=== PATIENT | female | born 1955 | race Caucasian/White ===

== ENCOUNTER → 2016-11-06 | Outpatient (CLI) | payer OTHER ==
--- NOTE | 2016-11-07 14:16 | MAMMOGRAPHY REPORT ---
BILATERAL DIGITAL SCREENING MAMMOGRAM TOMOSYNTHESIS WITH CAD: 11/06/2016 CLINICAL HISTORY: Routine screening. Patient has no complaints. TECHNIQUE: Breast tomosynthesis in addition to standard 2D mammography was performed. Current study was also evaluated with a Computer Aided Detection (CAD) system. COMPARISON: Comparison is made to exams dated: 05/03/2016 mammogram, 10/24/2015 mammogram - [facility], 06/07/2014 mammogram, 10/24/2015 ultrasound - [facility], 05/06/20 13 mammogram, and 10/26/2011 mammogram. BREAST COMPOSITION: The tissue of both breasts is heterogeneously dense, which may obscure small ma sses. FINDINGS: No suspicious masses, calcifications, or areas of architectural distortion are noted in ei ther breast mammographically. There has been no significant interval change compared to prior exams . Scattered bilateral benign-appearing calcifications are not significantly changed. Asymmetry in the right superior posterior breast on the MLO view is similar to prior exams including the 2011 exa m, and has the appearance of normal fibroglandular tissue on the tomosynthesis images. Although the mammogram shows no mammographic evidence of malignancy, a biopsy was recommended of a f inding seen in the left breast at 2:00 on ultrasound only in April 2016, and was not visualized mammo graphically. A short interval follow-up was also recommended of a mass in the right breast at 10:00 on the April 2016 exam. IMPRESSION: ACR BI-RADS CATEGORY 0: INCOMPLETE EVALUATION: NEED ADDITIONAL IMAGING EVALUATION No mammographic evidence of malignancy in either breast. However, on the April 2016 exam a biopsy wa s recommended of a finding in the left breast at 2:00 seen on ultrasound only, and a short interval follow-up was recommended of a right 10:00 breast mass seen on ultrasound only. Therefore, follow-u p ultrasound is recommended of these 2 areas at this time. Also recommend routine bilateral screeni ng mammograms in one year. The patient will be called to schedule an appointment. Approximately 10% of breast cancers are not detected with mammography. A negative mammographic repor t should not delay biopsy if a clinically suggestive mass is present. Olamide Vides M.D. /:11/06/2016 16:51:35 Remote Operations Producer: Millie LOGAN)(Tova)([place]), [facility] letter sent: Addl Imaging 0 BI-RADS Code: ACR BI-RADS Category 0: Incomplete Evaluation: Need Additional Imaging Evaluation
== END | disposition home or self-care (01) ==
LOC: C.MAMM 10:57
PROVIDERS: ATTEND Obstetrics & Gynecology
DX: Z12.31 Encounter for screening mammogram for malignant neoplasm of breast (principal); R92.2 Inconclusive mammogram

== ENCOUNTER → 2017-11-07 | Outpatient (CLI) | payer OTHER ==
--- NOTE | 2017-11-10 07:44 | MAMMOGRAPHY REPORT ---
BILATERAL DIGITAL SCREENING MAMMOGRAM TOMOSYNTHESIS WITH CAD: 11/07/2017 CLINICAL HISTORY: Routine screening. Patient has no complaints. TECHNIQUE: Breast tomosynthesis in addition to standard 2D mammography was performed. Current study was also evaluated with a Computer Aided Detection (CAD) system. COMPARISON: Comparison is made to exams dated: 11/06/2016 mammogram, 05/03/2016 mammogram, 05/03/2016 u ltrasound - [facility] [address], 06/07/2014 mammogram, 10/24/2015 ultrasound, and 10/24/2015 mamm ogram - [facility] [address]. BREAST COMPOSITION: The tissue of both breasts is heterogeneously dense, which may obscure small mas ses. FINDINGS: No suspicious masses, calcifications, or areas of architectural distortion are noted in ei ther breast. There has been no significant interval change compared to prior exams. Bilateral benign -appearing calcifications are not significantly changed. Linear scar markers denote scars on the lef t lateral and right anterior breast. IMPRESSION: ACR BI-RADS CATEGORY 2: BENIGN There is no mammographic evidence of malignancy. A 1 year screening mammogram is recommended. The pa tient will receive written notification of the results. Approximately 10% of breast cancers are not detected with mammography. A negative mammographic report should not delay biopsy if a clinically suggestive mass is present. Olamide Vides M.D. /:11/07/2017 15:40:04 Assistant Banquet Manager: Miri LOGAN)(Tova), [facility] [address] letter sent: Normal 1/2 BI-RADS Code: ACR BI-RADS Category 2: Benign
== END | disposition home or self-care (01) ==
LOC: C.MAMM 10:11
PROVIDERS: ATTEND Obstetrics & Gynecology
DX: Z12.31 Encounter for screening mammogram for malignant neoplasm of breast (principal)

== ENCOUNTER → 2017-12-03 | Outpatient (CLI) | payer OTHER | END | disposition home or self-care (01) | LOC: C.PAPS 11:13 | PROVIDERS: ATTEND Obstetrics & Gynecology | DX: Z12.4 Encounter for screening for malignant neoplasm of cervix (principal) ==

== ENCOUNTER 2023-01-04 11:21 | Observation (INO) ==
--- NOTE | 2023-01-04 11:45 | Emergency Department Note ---
Impression & Plan COVID-19 ADMIT ED Provider Note HPI: The patient is a 67-year-old female with history of Parkinson disease, who presents to the emergency department with a chief complaint of generalized weakness and pain in the bilateral lower extremities. Patient states overnight she developed some increasing pain in her upper thigh area and hips bilaterally. Patient states this made it difficult to sleep. Patient also states she had a low-grade headache that began earlier this morning. Denies any recent fevers, denies any chest pain or shortness of breath. Patient states she does have some slight nausea, denies any abdominal pain. On arrival here to the ED the patient is hemodynamically stable, no motor or sensory deficits distally in the bilateral lower extremities are noted. Patient is saturating well on room air on arrival. Patient is afebrile on arrival. ROS: - Per HPI *Outpatient medications and allergy history reviewed. *Pertinent external medical records reviewed. PE: General: Alert HEENT: Normocephalic, trachea midline Eyes: Extraocular eye movement is intact, no scleral erythema Pulmonary: Clear to auscultation bilaterally, no wheezing Cardio: Regular rate and rhythm GI: Abdomen is soft to palpation : No suprapubic tenderness MSK: No evidence of trauma or malformation of the extremities, no edema, no midline tenderness of lumbar spine with palpation Skin: No evidence of rash Neuro: Alert, no focal deficits, 5 out of 5 strength with dorsiflexion and plantarflexion of the bilateral lower extremities, resting tremor noted to the left upper Psychiatric: Cooperative cardiac monitor technician: (As interpreted by myself): - An order was placed for continuous cardiac monitoring - Patient was noted to be in sinus rhythm with a rate of 85 EKG: (As interpreted by myself): Rate: 84 Rhythm: Normal sinus rhythm Intervals: Within normal limits ST changes: No ST elevation Time: 1250 Interventions provided in ED: -IV fluid bolus, IV Reglan, IV Benadryl, IV magnesium Differential Diagnosis: Viral illness, influenza infection, COVID-19 infection, rhabdomyolysis, sciatica, migraine headache, tension headache, intracranial hemorrhage/subarachnoid hemorrhage, gastroenteritis, amongst other potential pathologies. Medical Decision Making: The patient is a 67-year-old female with history of Parkinson disease, presents emergency department with a chief complaint of generalized weakness, bilateral lower extremity pain in the upper legs, mild headache. Patient states that she also has some nausea and generally just does not feel well. On arrival here to the ED the patient is hemodynamically stable, she is somewhat frail-appearing, she is in no acute physical distress on arrival. IV was established, lab work obtained, patient was placed on campus monitor. Patient was given IV fluid bolus as well as IV Reglan and IV Benadryl for headache. CT imaging of the head was obtained that does not show any evidence of acute intracranial process. CT imaging of the lumbar spine was obtained as the patient mentioned a history of "low disc volume at L3 and L4". CT imaging shows some degenerative changes of the lumbar spine without any acute fracture or emergent pathology. Patient does not have any red flag findings for cauda equina syndrome. Lab work does not show any evidence of acute renal failure, CPK levels are within normal limits, no critical electrolyte abnormalities are noted. Hemoglobin is stable, no leukocytosis. While on the campus monitor, patient had an event at 12:27pm that lasted approximately 5 seconds of apparent polymorphic ventricular tachycardia. Patient states in general she has felt weak and nauseous although no specific symptoms at that moment or obvious. This does not appear to be consistent with artifact. I did discuss this finding with on-call cardiology, Dr. Frazier, given reassuring EKG without any critical electrolyte abnormalities and magnesium within normal limits, recommends continued monitoring while admitted to the hospitalist service on campus monitor. I discussed all of the above findings with the patient and her [id number] at the bedside, patient will require admission for ambulatory dysfunction, states she does live alone, does not feel well for discharge. Case was then discussed with the on-call hospitalist, Dr. Hunter, patient was placed for admission in stable condition. Consultants: -Dr. Frazier, cardiology -Dr. Hunter, hospitalist Disposition discussion held by myself with: Patient and [id number] at the bedside Diagnosis: 1. COVID-19 infection 2. Myalgias, acute 3. Generalized weakness, acute 4. Headache, acute 5. Ambulatory dysfunction, acute on chronic 6. Paroxysmal episode of ventricular tachycardia Disposition: Admission Milo Rubio DO Emergency Medicine Past Med/Surg History Medical History Postmenopausal status (age-related) (natural) Surgical History H/O breast biopsy H/O eye surgery H/O umbilical hernia repair History of gynecologic surgery vaginal sling operation for stress incontinence Family History Father Heart disease Hypertension Mother Heart disease Hypertension Osteoporosis Denies family history of Breast cancer Colorectal cancer Social History Smoking Status: Never smoker Preferred Language: Kosovan Feels Safe at Home: Yes Allergies Allergies Allergy/AdvReac Type Severity Reaction Status Date / Time No Known Drug Allergies Allergy Unknown Verified 01/16/21 06:59 Home Meds Home Medications Medication Instructions Recorded Confirmed multivitamin 1 tab PO DAILY 09/27/20 01/16/21 Results & Data (ED) Vital Signs Vital Signs - 24 hr 01/04/23 11:25 01/04/23 12:00 01/04/23 12:00 Temperature 36.8 C Temperature Source Temporal Artery Scan Pulse Rate 97 H Pulse Rate [Right Finger] 91 H Pulse Rhythm [Right Finger] Regular Pulse Strength [Right Finger] Normal Respiratory Rate 18 18 Respiratory Effort / Characteristics Non-Labored Respiratory Depth Normal Respiratory Pattern Regular Blood Pressure 138/80 Blood Pressure [Right Arm] 156/78 H Blood Pressure Mean 99 Blood Pressure Mean [Right Arm] 104 Blood Pressure Position [Right Arm] Lying Pulse Oximetry 97 97 Oxygen Delivery Method Room Air Room Air Room Air Sepsis Recent Fever Within 48 Hours No Sepsis New/Unexplained Change in Mental Status No Sepsis Action Taken by Nursing No Action Required 01/04/23 12:20 01/04/23 12:27 01/04/23 12:47 Temperature Temperature Source Pulse Rate 90 231 H 87 Pulse Rate [Right Finger] Pulse Rhythm [Right Finger] Pulse Strength [Right Finger] Respiratory Rate Respiratory Effort / Characteristics Respiratory Depth Respiratory Pattern Blood Pressure Blood Pressure [Right Arm] Blood Pressure Mean Blood Pressure Mean [Right Arm] Blood Pressure Position [Right Arm] Pulse Oximetry Oxygen Delivery Method Sepsis Recent Fever Within 48 Hours Sepsis New/Unexplained Change in Mental Status Sepsis Action Taken by Nursing Laboratory Data 01/04/23 11:54 01/04/23 11:54 Lab Results 01/04/23 01/04/23 01/04/23 Range/Units 11:54 11:54 11:54 WBC 7.65 (4.8-10.8) K/ul RBC 4.54 (4.20-5.40) M/uL Hgb 13.3 (12.0-16.0) g/dl Hct 39.8 (37.0-47.0) % MCV 87.7 (80.0-100.0) fL MCH 29.3 (25.0-34.0) pg MCHC 33.4 (32.0-36.0) g/dL RDW Std Deviation 42.1 (36.4-46.3) fL RDW Coeff of Hoang 13.1 (11.5-14.5) % Plt Count 200 (130-400) K/uL MPV 10.1 (9.4-12.4) fL Immature Gran % (Auto) 0.4 % Neut % (Auto) 87.0 % Lymph % (Auto) 2.5 % [place] % (Auto) 8.9 % Eos % (Auto) 0.8 % Baso % (Auto) 0.4 % Neut # (Auto) 6.66 H (1.40-6.50) K/uL Lymph # (Auto) 0.19 L (1.2-3.4) K/uL [place] # (Auto) 0.68 H (0.11-0.59) K/uL Eos # (Auto) 0.06 (0-0.50) K/uL Baso # (Auto) 0.03 (0-0.2) K/uL Immature Gran # (Auto) 0.03 (0.01-0.20) K/uL Sodium 138 (136-145) mmol/L Potassium 3.8 (3.5-5.1) mmol/L Chloride 103 (98-107) mmol/L Carbon Dioxide 28 (21-32) mmol/L Anion Gap 7 (3-11) BUN 16 (6-23) mg/dl Creatinine 0.83 (0.6-1.2) mg/dl Est Cr Clr Drug Dosing Not Reportable Est GFR ( Amer) 84.0 ml/min Est GFR (Non-Af Amer) 72.5 ml/min BUN/Creatinine Ratio 19.3 (10-20) Glucose 106 H (70-99(Fasting)) mg/dl Calcium 9.1 (8.5-10.1) mg/dl Magnesium 1.8 (1.7-2.4) mg/dl Total Bilirubin 0.6 (0.2-1.0) mg/dl AST 17 (13-39) U/L ALT 14 (7-52) U/L Alkaline Phosphatase 57 (34-104) U/L Total Creatine Kinase 40 (26-192) U/L Troponin I High Sens 3.6 (0-14) pg/ml Total Protein 6.7 (6.0-8.3) gm/dl Albumin 4.2 (3.4-5.0) gm/dl Globulin 2.5 (2.5-4.0) gm/dl Albumin/Globulin Ratio 1.7 (0.9-2) TSH (0.300-4.500) uIu/ml SARS-CoV-2 (PCR) (Negative) Influenza Type A (PCR) (Neg) Influenza Type B (PCR) (Neg) RSV (RT-PCR) (Neg) 01/04/23 01/04/23 Range/Units 11:54 12:19 WBC (4.8-10.8) K/ul RBC (4.20-5.40) M/uL Hgb (12.0-16.0) g/dl Hct (37.0-47.0) % MCV (80.0-100.0) fL MCH (25.0-34.0) pg MCHC (32.0-36.0) g/dL RDW Std Deviation (36.4-46.3) fL RDW Coeff of Hoang (11.5-14.5) % Plt Count (130-400) K/uL MPV (9.4-12.4) fL Immature Gran % (Auto) % Neut % (Auto) % Lymph % (Auto) % [place] % (Auto) % Eos % (Auto) % Baso % (Auto) % Neut # (Auto) (1.40-6.50) K/uL Lymph # (Auto) (1.2-3.4) K/uL [place] # (Auto) (0.11-0.59) K/uL Eos # (Auto) (0-0.50) K/uL Baso # (Auto) (0-0.2) K/uL Immature Gran # (Auto) (0.01-0.20) K/uL Sodium (136-145) mmol/L Potassium (3.5-5.1) mmol/L Chloride (98-107) mmol/L Carbon Dioxide (21-32) mmol/L Anion Gap (3-11) BUN (6-23) mg/dl Creatinine (0.6-1.2) mg/dl Est Cr Clr Drug Dosing Est GFR ( Amer) ml/min Est GFR (Non-Af Amer) ml/min BUN/Creatinine Ratio (10-20) Glucose (70-99(Fasting)) mg/dl Calcium (8.5-10.1) mg/dl Magnesium (1.7-2.4) mg/dl Total Bilirubin (0.2-1.0) mg/dl AST (13-39) U/L ALT (7-52) U/L Alkaline Phosphatase (34-104) U/L Total Creatine Kinase (26-192) U/L Troponin I High Sens (0-14) pg/ml Total Protein (6.0-8.3) gm/dl Albumin (3.4-5.0) gm/dl Globulin (2.5-4.0) gm/dl Albumin/Globulin Ratio (0.9-2) TSH 0.898 (0.300-4.500) uIu/ml SARS-CoV-2 (PCR) POSITIVE A* (Negative) Influenza Type A (PCR) Negative (Neg) Influenza Type B (PCR) Negative (Neg) RSV (RT-PCR) Negative (Neg) Administered Medications Discontinued Medications Diphenhydramine HCl (Diphenhydramine 50 Mg/Ml Vial) 25 mg IV NOW STA Stop: 01/04/23 13:26 Last Admin: 01/04/23 13:34 Dose: 25 mg Documented By: ROSA Sodium Chloride (Nss) 500 mls @ 999 mls/hr IV .Q31M ONE Stop: 01/04/23 12:16 Last Infusion: 01/04/23 12:41 Dose: 0 mls/hr Documented By: Admin: 01/04/23 12:00 Dose: 999 mls/hr Documented By: JULIANA Metoclopramide HCl (Metoclopramide Hcl Inj 5 Mg/Ml 2 Ml Vial) 10 mg IV NOW STA Stop: 01/04/23 13:26 Last Admin: 01/04/23 13:34 Dose: 10 mg Documented By: ROSA Imaging Data Radiologist's Impression: Lumbar Spine CT 01/04/23 11:42 CT OF THE LUMBAR SPINE CLINICAL HISTORY: Lower extremity weakness/pain. COMPARISON STUDY: No previous studies for comparison. TECHNIQUE: Helical axial images of the lumbar spine were obtained. Sagittal and coronal reconstructions were viewed. Automated exposure control was utilized for the study. A dose lowering technique was utilized adhering to the principles of ALARA. FINDINGS: For purposes of numbering on this exam, the L5-S1 disc space is assigned to axial image 303 of 346. There is slight anterolisthesis of L4 and L5 due to facet arthrosis. There is also slight anterolisthesis of L3 on L4. There is minimal leftward curvature of the mid lumbar spine. Vertebral body heights are maintained. There is no lumbar spine fracture. No osseous lesion is present. Severe multilevel facet arthrosis within the mid to lower lumbar spine is present. There is mild multilevel degenerative disc disease. The central canal and neural foramen are suboptimally assessed given CT technique. However, there is no evidence for severe central canal or neural foraminal stenosis. No signif icant central canal stenosis is identified by CT. There is mild to moderate multilevel neural foraminal stenosis. Paravertebral soft tissues are unremarkable. IMPRESSION: 1. No acute lumbar spine fracture or subluxation. 2. Mild multilevel degenerative disc disease and severe facet arthrosis within the lumbar spine. Central canal and neural foramen suboptimally assessed by CT. However, no evidence for central canal stenosis. Mild to moderate multilevel neural foraminal stenosis. ACT 112: Negative or not required by law. Electronically signed by: Kingsley Rhoades M.D. 01/04/2023 12:23 PM Chest X-Ray 01/04/23 12:40 XR chest 1V portable CLINICAL HISTORY: weak COMPARISON STUDY: No previous studies for comparison. FINDINGS: Lung volumes are normal. Lungs are clear. There is no pneumothorax or pleural effusion. Cardiac size is normal. Mediastinal contours are normal. There is no evidence for pulmonary edema. IMPRESSION: No acute cardiopulmonary findings. ACT 112: Negative or not required by law. Electronically signed by: Kingsley Rhoades M.D. 01/04/2023 1:[address] 01/04/23 13:25 CT OF THE HEAD WITHOUT CONTRAST CLINICAL HISTORY: Headache. COMPARISON STUDY: No previous studies for comparison. CT DOSE: 614.27 mGy.cm TECHNIQUE: Helical axial images of the head were obtained without IV contrast. Automated exposure control was utilized for the study. A dose lowering technique was utilized adhering to the principles of ALARA. FINDINGS: No acute intracranial hemorrhage, midline shift or mass effect is pre sent. The ventricular system is unremarkable. The basal cisterns are patent. No extra-axial collections are present. There are no findings to suggest acute dural sinus thrombosis or acute territorial infarct. No significant calvarial abnormalities are present. IMPRESSION: No acute intracranial findings. ACT 112: Negative or not required by law. Electronically signed by: Kingsley Rhoades M.D. 01/04/2023 1:59 PM Discharge Plan Visit Data Chief Complaint: Leg Weakness, Bilateral Stated Complaint: WEAKNESS IN LEGS ED Provider: Milo Rubio Discharge Problem: COVID-19 Forms Stand Alone Forms: [employer] Prescriptions Prescriptions: No Action multivitamin Tablet 1 tab PO DAILY Referrals Referrals: PCP,NO [Primary Care Provider] -
[2023-01-04] MEDS ORDERED: SODIUM CHLORIDE 0.9% 500 ML IV ONE (11:46)
[2023-01-04 12:06] LABS: Basophils # (auto) 0.03 K/uL (0-0.2); Basophils % (auto) 0.4 %; Eosinophils # (auto) 0.06 K/uL (0-0.50); Eosinophils % (auto) 0.8 %; Hematocrit (blood only) 39.8 % (37.0-47.0); Hemoglobin 13.3 g/dl (12.0-16.0); Immature Granulocytes # (auto) 0.03 K/uL (0.01-0.20); Immature Granulocytes % (auto) 0.4 %; Lymphocytes # (auto) 0.19 K/uL (1.2-3.4); Lymphocytes % (auto) 2.5 %; Mean Corpuscular Hemoglobin 29.3 pg (25.0-34.0); Mean Corpuscular Hgb Conc 33.4 g/dL (32.0-36.0); Mean Corpuscular Volume 87.7 fL (80.0-100.0); Mean Platelet Volume 10.1 fL (9.4-12.4); Monocytes # (auto) 0.68 K/uL (0.11-0.59); Monocytes % (auto) 8.9 %; Neutrophils # (auto) 6.66 K/uL (1.40-6.50); Platelet Count 200 K/uL (130-400); RDW Coefficient of Variation 13.1 % (11.5-14.5); RDW Standard Deviation 42.1 fL (36.4-46.3); Red Blood Count 4.54 M/uL (4.20-5.40); White Blood Count 7.65 K/ul (4.8-10.8)
[2023-01-04 12:21] LABS: Albumin Level 4.2 gm/dl (3.4-5.0); Anion Gap 7 (3-11); Bilirubin,Total 0.6 mg/dl (0.2-1.0); Calcium 9.1 mg/dl (8.5-10.1); Carbon Dioxide 28 mmol/L (21-32); Chloride 103 mmol/L (98-107); Potassium 3.8 mmol/L (3.5-5.1); Sodium 138 mmol/L (136-145)
--- NOTE | 2023-01-04 12:26 | CT Scan Report ---
CT OF THE LUMBAR SPINE CLINICAL HISTORY: Lower extremity weakness/pain. COMPARISON STUDY: No previous studies for comparison. TECHNIQUE: Helical axial images of the lumbar spine were obtained. Sagittal and coronal reconstruct ions were viewed. Automated exposure control was utilized for the study. A dose lowering technique was utilized adhering to the principles of ALARA. FINDINGS: For purposes of numbering on this exam, the L5-S1 disc space is assigned to axial image 303 of 346. There is slight anterolisthesis of L4 and L5 due to facet arthrosis. There is also slight an terolisthesis of L3 on L4. There is minimal leftward curvature of the mid lumbar spine. Vertebral bod y heights are maintained. There is no lumbar spine fracture. No osseous lesion is present. Severe mul tilevel facet arthrosis within the mid to lower lumbar spine is present. There is mild multilevel deg enerative disc disease. The central canal and neural foramen are suboptimally assessed given CT techn ique. However, there is no evidence for severe central canal or neural foraminal stenosis. No signifi cant central canal stenosis is identified by CT. There is mild to moderate multilevel neural foramina l stenosis. Paravertebral soft tissues are unremarkable. IMPRESSION: 1. No acute lumbar spine fracture or subluxation. 2. Mild multilevel degenerative disc disease and severe facet arthrosis within the lumbar spine. Cent ral canal and neural foramen suboptimally assessed by CT. However, no evidence for central canal sten osis. Mild to moderate multilevel neural foraminal stenosis. ACT 112: Negative or not required by law. Electronically signed by: Kingsley Rhoades M.D. 01/04/2023 12:23 PM
[2023-01-04 12:27] LABS: Alanine Aminotransferase 14 U/L (7-52); Albumin Globulin Ratio 1.7 (0.9-2); Alkaline Phosphatase 57 U/L (34-104); Aspartate Aminotransferase 17 U/L (13-39); BUN Creatinine Ratio 19.3 (10-20); Blood Urea Nitrogen 16 mg/dl (6-23); Creatine Kinase 40 U/L (26-192); Est GFR (Non-African American) 72.5 ml/min; Globulin 2.5 gm/dl (2.5-4.0); Glucose 106 mg/dl (70-99(Fasting)); Total Protein 6.7 gm/dl (6.0-8.3)
[2023-01-04 13:20] LABS: Influenza A virus by PCR Negative (Neg); Influenza B virus by PCR Negative (Neg); RSV by PCR Negative (Neg)
[2023-01-04] MEDS ORDERED: METOCLOPRAMIDE HCL INJ 5 MG/ML 2 ML VIAL IV STA (13:25)
[2023-01-04] MEDS ORDERED: diphenhydrAMINE 50 MG/ML VIAL IV STA (13:25)
--- NOTE | 2023-01-04 13:33 | XRay Report ---
XR chest 1V portable CLINICAL HISTORY: weak COMPARISON STUDY: No previous studies for comparison. FINDINGS: Lung volumes are normal. Lungs are clear. There is no pneumothorax or pleural effusion. Car diac size is normal. Mediastinal contours are normal. There is no evidence for pulmonary edema. IMPRESSION: No acute cardiopulmonary findings. ACT 112: Negative or not required by law. Electronically signed by: Kingsley Rhoades M.D. 01/04/2023 1:31 PM
[2023-01-04 13:34] LABS: Magnesium 1.8 mg/dl (1.7-2.4)
[2023-01-04 13:41] LABS: Troponin I High Sensitivity 3.6 pg/ml (0-14)
[2023-01-04 13:45] LABS: SARS CoV2 RNA(COVID-19) Ceph POSITIVE (Negative)
--- NOTE | 2023-01-04 14:00 | CT Scan Report ---
CT OF THE HEAD WITHOUT CONTRAST CLINICAL HISTORY: Headache. COMPARISON STUDY: No previous studies for comparison. CT DOSE: 614.27 mGy.cm TECHNIQUE: Helical axial images of the head were obtained without IV contrast. Automated exposure con trol was utilized for the study. A dose lowering technique was utilized adhering to the principles o f ALARA. FINDINGS: No acute intracranial hemorrhage, midline shift or mass effect is present. The ventricular system is unremarkable. The basal cisterns are patent. No extra-axial collections are present. There are no findings to suggest acute dural sinus thrombosis or acute territorial infarct. No significant calvarial abnormalities are present. IMPRESSION: No acute intracranial findings. ACT 112: Negative or not required by law. Electronically signed by: Kingsley Rhoades M.D. 01/04/2023 1:59 PM
[2023-01-04] MEDS: MAGNESIUM SULFATE / D5W 1 GM/100 ML BAG IV SCH ×2 (14:28→18:15)
--- NOTE | 2023-01-04 14:37 | History & Physical Report ---
Date of Service January 04, 2023 Assessment & Plan (1) COVID-19: Plan: Exertional fatigue 2/2 COVID-19. - No hypoxia, patient denies exertional dyspnea at bedside No leukocytosis No hypoxia, steroid/remdesivir not currently indicated Patient with myalgias, CK is normal CRP pending - No transaminitis -Creatinine baseline is less than 1, admitting creatinine 0.83. Creatinine/BUN ratio is not elevated. CXR: No acute findings High-sensitivity troponin normal, patient is clinically without chest pain Patient has been with headache and fatigue, CT head with no acute findings. Headache improved following symptomatic treatment of nausea CTC-spine with no acute lumbar fracture or subluxation. Multilevel degenerative disease, no central canal stenosis noted. Multilevel neural for aminal stenosis Nonsustained polymorphic V. tach Less than 2 seconds, 1 episode noted on monitor. Asymptomatic, patient did not lose consciousness or noticed the episode although per her family who was at bedside thought she was more irritable for secondary to Magnesium 1.8, repletion ordered. Received 2 bags in ER, additional 2 bags ordered for floor. EKG: Normal sinus rhythm, rate 84, QTc 449, no ST segment changes or T wave inversion Avoid QT prolonging medications including Zofran Follow on telemetry Cardiology consulted Echo pending Parkinsonism Patient reports longstanding focal resting tremor in left hand without sensory deficits. Has followed with neurology in the past, given that this does not interfere with her life and has been limited to the left hand she has not pursued medical treatments for this. She does not currently follow with neurology, if her symptoms worsen she will make a follow-up appointment for reevaluation and potential Sinemet treatment; however this has not been required today. No recent change. No acute intervention indicated at this time. DVT prophylaxis: COVID DVT prophylaxis with Lovenox Diet: Regular Disposition: PCU CODE STATUS: Full code (2) Polymorphic ventricular tachycardia: History of Present Illness Primary Care Provider: NO PCP Gabriella is a 67-year-old female patient with a past medical history of parkinsonism who presents with exertional fatigue and is COVID-positive on admission. While in monitoring she had a less than 2-second episode of polymorphic VT which was discussed with cardiology, recommended for echo and observation on telemetry with electrolyte optimization. Has been doing pt since june and is 'a little sore after' but last night was 'much more sore and tired.' Nausea has resolved since being in the ER, but notes she is hypersensitive to smells and cannot wear a mask. No fevers. No cough. No shortness or breath No chest pain. Easily exercise fatigue, but reports she is not actually short of breath with ambulation 'my breathing is fine, just more tired and achy.' Has a headache in the last day, reports she usually benefits from chiropractic and acupuncture but has not done this lately. She reports she has a decreased appetite for 2 days, but is currently hungry and would like to eat now that her nausea is well controlled. Has not had vomiting, diarrhea. Denies syncope/presyncope. Denies numbness/tingling. Endorses chronic mild swelling in her legs. No history of orthopnea or shortness of breath lying flat Chronic Medications: Multiple vitamin supplements. Denies any prescription medications Medical History: Diagnosed with Parkinsons, does not take sinemet or any medications. Sx do not interfere with her life so has deferred. Symptoms are limited to L hand tremor at baseline, not currently following with a neurologist. Plans to make apptment if sx interfere with daily activities. Primary Care Doc: Dr. Marroquin, has not seen since he retired. Would liek to establish with a provider who can do complimentary medicine such as acupuncture. Medical History: Reviewed Medications: Reviewed. NKDA Surgical History: Reviewed Family history: Reviewed Allergies: Reviewed Social History: No tobacco, no alcohol use. Code Status: Full code Allergies Allergy/AdvReac Type Severity Reaction Status Date / Time No Known Drug Allergies Allergy Unknown Verified 01/16/21 06:59 Home Medications Medication Instructions Recorded Confirmed Type multivitamin 1 tab PO DAILY 09/27/20 01/16/21 History Past Med/Surg History Medical History Postmenopausal status (age-related) (natural) Surgical History H/O breast biopsy H/O eye surgery H/O umbilical hernia repair History of gynecologic surgery vaginal sling operation for stress incontinence Family History Father Heart disease Hypertension Mother Heart disease Hypertension Osteoporosis Denies family history of Breast cancer Colorectal cancer Social History Smoking Status: Never smoker Preferred Language: British Feels Safe at Home: Yes Review of Systems Review of Systems: All systems reviewed & are unremarkable except as noted in HPI & below Physical Exam Physical Exam: General: A&Ox3. NAD. Cooperative. HEENT: Atraumatic, normocephalic. Vision/hearing intact. Pupils equal and reactive to light neck flexion/extension rotation intact. Chin to chest intact. Pulm: CTAB A&P. -wheezes, -rales, -rhonchi. Symmetrical chest rise. No increased work of breathing. No respiratory distress. Cardiac: RRR, -mrg. Radial pulses intact and symmetrical. Abdominal: Nontender, nondistended, soft. BS present. Extremities: Resting 3 to 5 Hz tremor of the left hand. No other tremor noted. Tremor does quiet on [id number] extension. Conventional Machinist strength, ankle dorsiflexion/plantarflexion is 5/5 with encouragement. Sensation intact to soft touch in hands and feet. Results & Data Results & Data Vital Signs (Past 12 Hours) Vital Signs Temp Pulse Pulse Resp BP BP Pulse Ox 01/04/23 12:47 87 01/04/23 12:27 231 H 01/04/23 12:20 90 01/04/23 12:00 01/04/23 12:00 91 H 18 156/78 H 97 01/04/23 11:25 36.8 C 97 H 18 138/80 97 O2 Del Method 01/04/23 12:47 01/04/23 12:27 01/04/23 12:20 01/04/23 12:00 Room Air 01/04/23 12:00 Room Air 01/04/23 11:25 Room Air PG Care Time/CCT Total # of Minutes Spent Total Time Spent with Patient: Total time spent is greater than 50% in coordination of care (as documented) at patient's floor/unit and/or counseling patient: Coding Level of Care Code 04140 INT INP/OBS CARE 2/55MIN Diagnoses COVID-19 U07.1 Polymorphic ventricular tachycardia I47.29
[2023-01-04 14:38] LABS: Appearance Urine Turbid (Clear); Bacteria Urine Automated Negative (Negative); Bilirubin Urine Negative (Negative); Blood Urine Negative (Negative); Color Urine Yellow; Epithelial Cell Urine Auto >30 /lpf (0-5); Glucose Urine UA Negative (Negative); Ketones Urine 1+ (Negative); Leukocyte Esterase Urine Negative (Negative); Nitrite Urine Negative (Negative); Protein Urine Negative (Negative); RBC Urine Automated 0-4 /hpf (0-4); Specific Gravity Urine 1.016 (1.000-1.030); Urobilinogen Urine Negative (Negative); pH Urine >= 9.0 (4.5-7.5)
[2023-01-04] MEDS ORDERED: MAGNESIUM SULFATE / D5W 1 GM/100 ML BAG IV ONE (15:30)
[2023-01-04] MEDS ORDERED: ACETAMINOPHEN 325 MG TAB PO PRN (17:26)
[2023-01-04] MEDS ORDERED: ACETAMINOPHEN 1,000 MG/100 ML VIAL IV PRN (18:32)
[2023-01-04 18:41] LABS: Troponin I High Sensitivity 4.3 pg/ml (0-14)
[2023-01-04 19:04] LABS: Magnesium 2.3 mg/dl (1.7-2.4)
[2023-01-04] MEDS: ENOXAPARIN INJ 40 MG/0.4 ML SYR SQ SCH (20:59)
[2023-01-04] MEDS ORDERED: FAMOTIDINE 20 MG in SYRINGE 3 ML IV PRN (21:00)
[2023-01-05 07:06] LABS: Basophils # (auto) 0.01 K/uL (0-0.2); Basophils % (auto) 0.2 %; Eosinophils # (auto) 0.01 K/uL (0-0.50); Eosinophils % (auto) 0.2 %; Hematocrit (blood only) 34.6 % (37.0-47.0); Hemoglobin 11.7 g/dl (12.0-16.0); Immature Granulocytes # (auto) 0.02 K/uL (0.01-0.20); Immature Granulocytes % (auto) 0.4 %; Lymphocytes # (auto) 0.44 K/uL (1.2-3.4); Lymphocytes % (auto) 8.5 %; Mean Corpuscular Hemoglobin 29.3 pg (25.0-34.0); Mean Corpuscular Hgb Conc 33.8 g/dL (32.0-36.0); Mean Corpuscular Volume 86.5 fL (80.0-100.0); Mean Platelet Volume 11.1 fL (9.4-12.4); Monocytes # (auto) 1.25 K/uL (0.11-0.59); Neutrophils # (auto) 3.47 K/uL (1.40-6.50); Neutrophils % (auto) 66.7 %; Platelet Count 165 K/uL (130-400); RDW Standard Deviation 41.1 fL (36.4-46.3)
--- NOTE | 2023-01-05 07:37 | Electrocardiogram Report ---
Test Reason : Blood Pressure : / mmHG Vent. Rate : 084 BPM Atrial Rate : 084 BPM P-R Int : 158 ms QRS Dur : 080 ms QT Int : 380 ms P-R-T Axes : 062 032 059 degrees QTc Int : 449 ms Normal sinus rhythm Normal ECG No previous ECGs available Confirmed by Enrique Frazier ([id number]) on 01/05/2023 7:36:21 AM Referred By: REFERRED SELF Confirmed By:Delroy Frazier
--- NOTE | 2023-01-05 07:45 | Hospitalist Progress Note ---
Date of Service January 05, 2023 Assessment & Plan (1) COVID-19: Plan: acute on chronic Exertional fatigue 2/2 COVID-19. Patient has been with headache and fatigue, CT head with no acute findings. Headache improved following symptomatic treatment of nausea CTL-spine with no acute lumbar fracture or subluxation. Multilevel degenerative disease, no central canal stenosis noted. Multilevel neural for aminal stenosis Nonsustained polymorphic V. tach was unfounded and this is artifactual ventricular tachycardia, may have been influenced by her Parkinson's Her echocardiogram does not show structural heart disease no immediate treatment would be required Parkinsonism Patient reports longstanding focal resting tremor in left hand without sensory deficits. Has followed with neurology in the past, given that this does not interfere with her life and has been limited to the left hand she has not pursued medical treatments for this. She does not currently follow with neurology, if her symptoms worsen she will make a follow-up appointment for reevaluation and potential Sinemet treatment; however this has not been required today. No recent change. No acute intervention indicated at this time. DVT prophylaxis: COVID DVT prophylaxis with Lovenox Diet: Regular Disposition: PCU CODE STATUS: Full code (2) Polymorphic ventricular tachycardia: Admission and Anticipated Discharge Date Admission Date: January 04, 2023 Subjective I was called to emergently see the patient as she was reportedly writhing in pain complaining of bilateral inguinal pain. Prior to coming and ordered a dose of morphine 2 mg. Upon arriving to the room where I went to see the patient with the nurse this patient refused treatment of morphine. She said all she wanted was Tylenol but specifically wanted IV Tylenol. The patient was examined there is no immediate physical findings to corroborate her pain and her pain did not seem substantial upon my examination. I offered her oral Tylenol. I offered to add other medications to help she said she is not interested in taking many medication but was agreeable to a dose of IV Toradol Initially there was some concern that the patient may have had V. tach in the emergency department. She has a baseline history of Parkinson's disease. Patient is also COVID-positive. I spoke to cardiology at the nurses station who reviewed the strips from the evening in the ER and feels this is what will be considered to pressure artifactual ventricular tachycardia and he is care rep did not feel that this was a real arrhythmia. He reviewed echocardiogram with me there is no structural heart disease and subsequently we canceled the cardiology consultation. Physical Exam Physical Exam: Patient is awake she is without significant signs of pain objectively Her cardiac exam is regular her monitor strip shows normal sinus mechanism Her lungs were clear Abdomen is with NABS and soft Her bilateral lower abdomen inguinal area and hips were examined in the presence of her nurse. There is no lymphadenopathy there is no guarding there is no bruising she has good femoral pulses bilaterally with no and lymphadenopathy she has no tenderness to external rotation of the hip or abduction across midline there is no greater trochanteric pain there is no hernia elicited with coughing Extremities are without signs clubbing or edema Results & Data Results & Data Vital Signs (Past 12 Hours) Vital Signs Temp Pulse Pulse Resp BP Pulse Ox O2 Del Method 01/05/23 04:00 98.1 F 67 19 107/53 L 95 Room Air 01/05/23 04:39 74 01/04/23 23:29 98.8 F 86 20 124/62 95 Room Air 01/04/23 19:47 98.1 F 87 20 136/78 93 Room Air Laboratory Results Reviewed CBC Reviewed PRP Reviewed C-reactive protein PG Care Time/CCT Total # of Minutes Spent Total Time Spent with Patient: Total time spent is greater than 50% in coordination of care (as documented) at patient's floor/unit and/or counseling patient: Coding Level of Care Code 62784 SUB INP/OBS CARE 2/35MIN Diagnoses COVID-19 U07.1 Polymorphic ventricular tachycardia I47.29
[2023-01-05] MEDS ORDERED: MoRPHine SULFATE 2 MG/ML CARP IV PRN (07:46)
[2023-01-05] MEDS ORDERED: MoRPHine SULFATE 4 MG/ML 1 ML CARP\\VIAL IV PRN (07:46)
[2023-01-05 07:47] LABS: Albumin Globulin Ratio 1.7 (0.9-2); Albumin Level 3.7 gm/dl (3.4-5.0); BUN Creatinine Ratio 18.8 (10-20); Bilirubin,Total 0.4 mg/dl (0.2-1.0); C Reactive Protein 1.64 mg/dl (0-0.5); Calcium 8.5 mg/dl (8.5-10.1); Creatinine Clr Calc Pharmacy 78.2 ml/min; Est GFR (African American) 87.8 ml/min; Est GFR (Non-African American) 75.8 ml/min; Globulin 2.2 gm/dl (2.5-4.0); Magnesium 2.3 mg/dl (1.7-2.4); Potassium 3.4 mmol/L (3.5-5.1); Total Protein 5.9 gm/dl (6.0-8.3)
[2023-01-05] MEDS: MoRPHine SULFATE 2 MG/ML CARP IV STA ×2 (08:07→08:16)
[2023-01-05] MEDS: ENOXAPARIN INJ 40 MG/0.4 ML SYR SQ SCH ×2 (08:11→20:08)
[2023-01-05] MEDS ORDERED: KETOROLAC 30 MG/ML VIAL IV ONE (08:24)
--- NOTE | 2023-01-05 10:06 | Communication Note ---
Date of Service: January 05, 2023 I was originally asked to see the patient for polymorphic ventricular tachycardia. A review of the associated electrograms reveals this to have been artifact. No true ventricular tachycardia. As result, no formal consultation will be provided. Baseline EKG was normal. No additional events on telemetry overnight. Echocardiogram performed today revealed preserved LV systolic function with mild mitral regurgitation.
--- NOTE | 2023-01-05 10:06 | XCELERA ---
[id number]
[2023-01-05] MEDS ORDERED: POTASSIUM CHLORIDE CRTAB 20 MEQ TABCR PO STA (13:08)
[2023-01-05] MEDS: DICLOFENAC SOD 1% GEL 100 GM TUBE EXT SCH ×2 (13:31→20:08)
[2023-01-05] MEDS: KETOROLAC TROMETHAMINE 15 MG/ML VIAL IV PRN (15:24)
[2023-01-05] MEDS: ACETAMINOPHEN 500 MG TAB PO PRN ×2 (15:42→22:57)
[2023-01-06] MEDS: KETOROLAC TROMETHAMINE 15 MG/ML VIAL IV PRN (03:25)
[2023-01-06] MEDS: DICLOFENAC SOD 1% GEL 100 GM TUBE EXT SCH ×2 (08:48→08:54)
[2023-01-06] MEDS: ENOXAPARIN INJ 40 MG/0.4 ML SYR SQ SCH (08:48)
[2023-01-06 09:14] LABS: Basophils # (auto) 0.02 K/uL (0-0.2); Basophils % (auto) 0.5 %; Eosinophils # (auto) 0.01 K/uL (0-0.50); Eosinophils % (auto) 0.2 %; Hematocrit (blood only) 39.7 % (37.0-47.0); Hemoglobin 13.2 g/dl (12.0-16.0); Immature Granulocytes # (auto) 0.01 K/uL (0.01-0.20); Immature Granulocytes % (auto) 0.2 %; Lymphocytes # (auto) 0.84 K/uL (1.2-3.4); Mean Corpuscular Hemoglobin 29.1 pg (25.0-34.0); Mean Corpuscular Hgb Conc 33.2 g/dL (32.0-36.0); Mean Corpuscular Volume 87.6 fL (80.0-100.0); Mean Platelet Volume 11.1 fL (9.4-12.4); Monocytes # (auto) 0.93 K/uL (0.11-0.59); Monocytes % (auto) 22.2 %; Neutrophils # (auto) 2.38 K/uL (1.40-6.50); Neutrophils % (auto) 56.9 %; Platelet Count 172 K/uL (130-400); RDW Coefficient of Variation 13.2 % (11.5-14.5); RDW Standard Deviation 42.6 fL (36.4-46.3); Red Blood Count 4.53 M/uL (4.20-5.40); White Blood Count 4.19 K/ul (4.8-10.8)
[2023-01-06 09:25] LABS: Albumin Globulin Ratio 1.6 (0.9-2); Albumin Level 4.1 gm/dl (3.4-5.0); BUN Creatinine Ratio 17.1 (10-20); Bilirubin,Total 0.4 mg/dl (0.2-1.0); Calcium 8.8 mg/dl (8.5-10.1); Creatinine Clr Calc Pharmacy 82.5 ml/min; Est GFR (African American) 93.4 ml/min; Est GFR (Non-African American) 80.6 ml/min; Globulin 2.5 gm/dl (2.5-4.0); Potassium 3.8 mmol/L (3.5-5.1); Total Protein 6.6 gm/dl (6.0-8.3)
[2023-01-06] MEDS ORDERED: traMADol HCL 50 MG TABLET PO STA (10:39)
[2023-01-06] MEDS ORDERED: dexAMETHasone 4 MG in SYRINGE 0 ML IV ONE (10:45)
--- NOTE | 2023-01-06 14:19 | Discharge Summary ---
Date of Service January 06, 2023 Admission HPI Per Admitting Provider Gabriella is a 67-year-old female patient with a past medical history of parkinsonism who presents with exertional fatigue and is COVID-positive on admission. While in monitoring she had a less than 2-second episode of erin ymorphic VT which was discussed with cardiology, recommended for echo and observation on telemetry with electrolyte optimization. Has been doing pt since june and is 'a little sore after' but last night was 'much more sore and tired.' Nausea has resolved since being in the ER, but notes she is hypersensitive to smells and cannot wear a mask. No fevers. No cough. No shortness or breath No chest pain. Easily exercise fatigue, but reports she is not actually short of breath with ambulation 'my breathing is fine, just more tired and achy.' Has a headache in the last day, reports she usually benefits from chiropractic and acupuncture but has not done this lately. She reports she has a decreased appetite for 2 days, but is currently hungry and would like to eat now that her nausea is well controlled. Has not had vomiting, diarrhea. Denies syncope/presyncope. Denies numbness/tingling. Endorses chronic mild swelling in her legs. No history of orthopnea or shortness of breath lying flat Chronic Medications: Multiple vitamin supplements. Denies any prescription medications Medical History: Diagnosed with Parkinsons, does not take sinemet or any medications. Sx do not interfere with her life so has deferred. Symptoms are limited to L hand tremor at baseline, not currently following with a neurologist. Plans to make apptment if sx interfere with daily activities. Primary Care Doc: Dr. Marroquin, has not seen since he retired. Would liek to establish with a provider who can do complimentary medicine such as acupuncture. Medical History: Reviewed Medications: Reviewed. NKDA Surgical History: Reviewed Family history: Reviewed Allergies: Reviewed Social History: No tobacco, no alcohol use. 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 No neurological compromise to lower extremities with pain in her anterior thighs bilaterally this is without evidence of mass or abnormal examination of the hips Discharge Data Allergies Allergy/AdvReac Type Severity Reaction Status Date / Time No Known Drug Allergies Allergy Unknown Verified 01/04/23 16:35 Consultations 01/04/23 14:18 ED Decision to Admit Stat Ordered Studies Lumbar Spine CT 01/04/23 11:42 CT OF THE LUMBAR SPINE CLINICAL HISTORY: Lower extremity weakness/pain. COMPARISON STUDY: No previous studies for comparison. TECHNIQUE: Helical axial images of the lumbar spine were obtained. Sagittal and coronal reconstructions were viewed. Automated exposure control was utilized for the study. A dose lowering technique was utilized adhering to the principles of ALARA. FINDINGS: For purposes of numbering on this exam, the L5-S1 disc space is assigned to axial image 303 of 346. There is slight anterolisthesis of L4 and L5 due to facet arthrosis. There is also slight anterolisthesis of L3 on L4. There is minimal leftward curvature of the mid lumbar spine. Vertebral body heights a re maintained. There is no lumbar spine fracture. No osseous lesion is present. Severe multilevel facet arthrosis within the mid to lower lumbar spine is present. There is mild multilevel degenerative disc disease. The central canal and neural foramen are suboptimally assessed given CT technique. However, there is no evidence for severe central canal or neural foraminal stenosis. No significant central canal stenosis is identified by CT. There is mild to moderate multilevel neural foraminal stenosis. Paravertebral soft tissues are unremarkable. IMPRESSION: 1. No acute lumbar spine fracture or subluxation. 2. Mild multilevel degenerative disc disease and severe facet arthrosis within the lumbar spine. Central canal and neural foramen suboptimally assessed by CT. However, no evidence for central canal stenosis. Mild to moderate multilevel neural foraminal stenosis. Electronically signed by: Kingsley Rhoades M.D. 01/04/2023 12:23 PM Chest X-Ray 01/04/23 12:40 XR chest 1V portable CLINICAL HISTORY: weak COMPARISON STUDY: No previous studies for comparison. FINDINGS: Lung volumes are normal. Lungs are clear. There is no pneumothorax or pleural effusion. Cardiac size is normal. Mediastinal contours are normal. There is no evidence for pulmonary edema. IMPRESSION: No acute cardiopulmonary findings. Head CT 01/04/23 13:25 CT OF THE HEAD WITHOUT CONTRAST CLINICAL HISTORY: Headache. COMPARISON STUDY: No previous studies for comparison. CT DOSE: 614.27 mGy.cm TECHNIQUE: Helical axial images of the head were obtained without IV contrast. Automated exposure control was utilized for the study. A dose lowering technique was utilized adhering to the principles of ALARA. FINDINGS: No acute intracranial hemorrhage, midline shift or mass effect is present. The ventricular system is unremarkable. The basal cisterns are patent. No extra-axial collections are present. There are no findings to suggest acute dural sinus thrombosis or acute territorial infarct. No significant calvarial abnormalities are present. IMPRESSION: No acute intracranial findings. Electronically signed by: Kingsley Rhoades M.D. 01/04/2023 1:59 PM Hospital Course (1) COVID-19: acute on chronic Exertional fatigue 2/2 COVID-19. Patient admits to improvement after steroid treatment offered Paxlovid as an outpatient denied will go home and steroid taper Patient has been with headache and fatigue, CT head with no acute findings. Headache improved following symptomatic treatment of nausea CTL-spine with no acute lumbar fracture or subluxation. Multilevel degenerative disease, no central canal stenosis noted. Multilevel neural foraminal stenosis -Patient improvement in her pain with Ultram we will with tapering dose of dexamethasone I do not think this is polymyalgia rheumatica as her pain is mostly hips and not shoulders there is no shoulder weakness. The pain may be coming from her foraminal stenosis and I recommended PCP follow-up with consideration of pain management referral and possible MRI. Nonsustained polymorphic V. tach was unfounded and this is artifactual ventricular tachycardia, may have been influenced by her Parkinson's Her echocardiogram does not show structural heart disease no immediate treatment would be required Parkinsonism Patient reports longstanding focal resting tremor in left hand without sensory deficits. Has followed with neurology in the past, given that this does not interfere with her life and has been limited to the left hand she has not pursued medical treatments for this. She does not currently follow with neurology, if her symptoms worsen she will make a follow-up appointment for reevaluation and potential Sinemet treatment; however this has not been required today. No recent change. No acute intervention indicated at this time. CODE STATUS: Full code (2) Polymorphic ventricular tachycardia: Total Time Total Time Spent Total Time Spent (In Minutes): It required greater than 30 minutes to prepare this patient for discharge Discharge Plan Discharge Items Patient Disposition: Home - Self-Care Reason For Visit: COVID+, NSpVT Discharge Diagnosis: covid infection Activity: Per Instructions section Activity Comment: slowly increase activity Non-emergency contact: Primary Care Provider Call non-emergency contact if: your symptoms worsen Follow-up/Referrals: Shea Bull, [Resident] - 01/14/23 2:05 pm ([facility] [address] ) PCP,NO [Primary Care Provider] - Diet: Regular Addtl Attending Provider Instructions: You have been diagnosed with covid infection, it would be recommended that you quarantine yourself for 10 days from your first test or first symptoms, and if at the 10th day you have no symptoms the you can come off quarantine but use common sense precautions. Quarantine means attempting to stay away from people who have not had an active covid infection in the past, and if you have to be around others to wear a mask even if you are indoors, do not share a room to sleep in with others until you are out of quarantine. If you still have symptoms at the 10th day, continue to quarantine until you are symptom free for 48 hours Pending Studies at Discharge: No Stand-Alone Forms: My [facility] [employer], Smoking Cessation Medications and DC Order Prescriptions: New dexamethasone 2 mg tablet 2 mg PO DAILY Qty: 26 0RF Rx Instructions: 3 a day x 4 days, 2 a day x 4 days then 1 a day tramadol 50 mg tablet 50 mg PO TID PRN (Reason: pain) Qty: 20 0RF Continued ascorbic acid (vitamin C) [Vitamin C] 500 mg Tablet 500 mg PO DAILY coenzyme Q10 [CoQ-10] 100 mg Capsule 0 mg PO DAILY red yeast rice 600 mg Capsule 600 mg PO DAILY Rx Instructions: give with meal/snack cholecalciferol (vitamin D3) [Vitamin D3] 125 mcg (5,000 unit) Tablet 125 mcg PO DAILY Calcium Magnesium 500 mg calcium -250 mg Tablet 1 tab PO DAILY Discharge Orders: Discharge Order (Routine); Ordered 01/06/23 Ordered By: Johnie Garland Admission Data Admit Date/Time: 01/04/23 15:14 Attending Provider: oJhnie Garland Admit Provider: Stefan Hunter Primary Care Provider: ACE,CELESTE Other Providers: Stefan Hunter Other Interventions: Discharge Summary Assessment (RN) Last Done: 01/06/23 14:57 Coding Level of Care Code 06385 INP/OBS DISCH >30 MIN Diagnoses COVID-19 U07.1 Polymorphic ventricular tachycardia I47.29
--- NOTE | 2023-03-21 08:32 | Coding Query ---
A supporting diagnosis is required for the test/procedure performed on this patient in order for us to be reimbursed by the patient's insurance. Please provide a supporting diagnosis for the following test/procedure listed below next to the test name along with your signature. *If there is no additional diagnosis for this patient that would support the following test/procedure please document that below next to the test/procedure. Test(s)/Procedure(s) that require a supporting diagnosis: If this is for the Cardiac Echo I did not order this but the ordering providers reason is on the orders, as is polymorphic VT, I am not sure why I need to restate this if its on the Echo report LIMITED DOPPLER DIAGNOSIS: Polymorphic Ventricular Tachycardia ECHO COLOR FLOW DIAGNOSIS: Polymorphic Ventricular Tachycardia Provider Signature: Date: Thank you Quyen Medina [employer] Once completed, please kindly fax back to [phone] For questions please call [phone] [facility]
== END 2023-01-06 16:25 | disposition home or self-care (01) ==
LOC: 2S 11:21 → ED 11:21 → SUATTDRO 15:14 → 2S 16:09